=== PATIENT | female | born 1955 | race Caucasian/White ===

== ENCOUNTER 2017-11-10 14:25 | Emergency (ER) | payer BC ==
[2017-11-10 14:35] VITALS: BP 151/65
--- NOTE | 2017-11-10 14:57 | EDM.PDOC ---
ED HPI GENERAL MEDICAL PROBLEM - General Chief Complaint: Respiratory Problem Stated Complaint: COUGH Time Seen by Provider: 11/10/17 14:30 Source of Information: Reports: Patient History Limitations: Reports: No Limitations - History of Present Illness INITIAL COMMENTS - FREE TEXT/NARRATIVE: 62-year-old female presents for evaluation and treatment of cough. Patient reports that her symptoms started about . Reports her symptoms started with a headache. She reports current symptoms of headaches, fatigue, dyspnea on exertion, productive cough, nausea, diarrhea and vomiting. Per she's had 2 episodes of diarrhea and 2 episodes of vomiting today. She does have a past medical history of asthma and is on Spiriva and Brio. She also has an albuterol rescue inhaler and has been using this. Patient did get an influenza vaccine this season. 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 Duration: Day(s): (2) Headache Pain Score (Numeric/FACES): 5 - Related Data Allergies Allergy/AdvReac Type Severity Reaction Status Date / Time animal dander Allergy Cannot Verified 10/19/16 15:09 Remember codeine Allergy Cannot Verified 10/19/16 15:09 Remember Penicillins Allergy Airway Verified 10/19/16 15:09 Tightness Sulfa (Sulfonamide Allergy Cannot Verified 10/19/16 15:09 Antibiotics) Remember Home Meds: Home Meds Albuterol [Proair HFA] 2 puff INH Q4HR PRN 05/30/15 [History] Citalopram [Celexa] 40 mg PO DAILY 05/30/15 [History] Potassium Chloride [Klor-Con 8] 8 meq PO DAILY 05/30/15 [History] Acetaminophen [Tylenol Extra Strength] 1 - 2 tab PO Q6HR PRN 10/19/16 [History] Albuterol/Ipratropium [DuoNeb 3.0-0.5 MG/3 ML] 1 dose NEB Q6HR PRN 10/19/16 [ History] Budesonide/Formoterol [Symbicort 160-4.5 MCG] 2 puff INH BID PRN 10/19/16 [ History] Cetirizine HCl [Zyrtec] 1 tab PO DAILY 10/19/16 [History] Furosemide 1 tab PO DAILY 10/19/16 [History] Ibuprofen [Advil] 2 - 3 tab PO BID 10/19/16 [History] Levothyroxine Sodium 1 tab PO DAILY 10/19/16 [History] Pantoprazole Sodium 40 mg PO DAILY 10/19/16 [History] Levofloxacin [Levaquin] 750 mg PO DAILY #7 tab 11/10/17 [Rx] Ondansetron [Zofran ODT] 4 mg PO Q6H PRN #15 tab.dis 11/10/17 [Rx] Past Medical History HEENT History: Reports: Impaired Vision Other HEENT History: has upper denture, wears glasses Cardiovascular History: Reports: Heart Murmur Other Cardiovascular History: palpitations, elevated BNP, peripheral edema Respiratory History: Reports: Sleep Apnea Other Respiratory History: seasonal allergies, wears CPAP Gastrointestinal History: Reports: Hemorrhoids SURGICAL PROCESSOR History: Reports: , Other (See Below) Other OB/BYN History: exploratory laparotomy Musculoskeletal History: Psychiatric History: Reports: Anxiety, Other (See Below) Other Psychiatric History: fatigue Endocrine/Metabolic History: Reports: Hypothyroidism Hematologic History: Reports: Other (See Below) Other Hematologic History: vitamin d defiency - Past Surgical History HEENT Surgical History: Reports: None GI Surgical History: Reports: Cholecystectomy Female Surgical History: Reports: Breast Biopsy, Section, D&C, Hysterectomy Social & Family History - Tobacco Use Smoking Status *Q: Current Every Day Smoker Years of Tobacco use: 40 Packs/Tins Daily: 1 Used Tobacco, but Quit: No Second Hand Smoke Exposure: No - Caffeine Use Caffeine Use: Reports: Coffee - Recreational Drug Use Recreational Drug Use: No ED ROS GENERAL - Review of Systems Review Of Systems: See Below Constitutional: Reports: Chills, Fatigue. Denies: Fever HEENT: Reports: Throat Pain. Denies: Ear Pain Respiratory: Reports: Shortness of Breath, Cough GI/Abdominal: Reports: Diarrhea, Nausea, Vomiting Neurological: Reports: Headache ED EXAM, GENERAL - Physical Exam Exam: See Below Exam Limited By: No Limitations General Appearance: Alert, WD/WN, Mild Distress, Obese Eye Exam: Bilateral Eye: Normal Inspection Ears: Normal External Exam, Normal Canal, Hearing Grossly Normal, Normal TMs Nose: Normal Inspection Throat/Mouth: Normal Inspection, Normal Lips, Normal Oropharynx, Normal Voice, No Airway Compromise Neck: Normal Inspection. No: Lymphadenopathy (L), Lymphadenopathy (R) Respiratory/Chest: No Respiratory Distress, Lungs Clear, Normal Breath Sounds Cardiovascular: Normal Peripheral Pulses, Regular Rate, Rhythm, No Murmur Neurological: Alert, Oriented, Normal Cognition Psychiatric: Normal Affect, Normal Mood Skin Exam: Warm, Dry, Normal Color Course - Vital Signs Last Recorded V/S: Last Vital Signs Temp 36.5 C 11/10/17 14:31 Pulse 80 11/10/17 14:31 Resp 21 H 11/10/17 14:31 BP 151/65 H 11/10/17 14:31 Pulse Ox 99 11/10/17 14:31 - Orders/Labs/Meds Orders: Active Orders 24 hr Category Date Time Status Chest 2V [CR] Stat Exams 11/10/17 14:46 Taken - Radiology Interpretation Free Text/Narrative:: chest xray reviewed by myself and Dr. Cabrera. No acute infiltrate. Suspicious for bronchitis. - Re-Assessments/Exams Free Text/Narrative Re-Assessment/Exam: 11/10/17 15:51 Influenza returned negative. Discussed the chest x-ray and influenza results with the patient. I will treat her for bronchitis. She states that azithromycin has not worked for her. We'll treat her with Levaquin. She has allergies to codeine. She declined Tessalon Perles. She declined tussenx cough syrup. She has albuterol at home. Will give her some Zofran for nausea. Close follow-up with primary care provider. Discharge instructions as documented. Departure - Departure Time of Disposition: 15:52 Disposition: Home, Self-Care 01 Condition: Fair Clinical Impression: Bronchitis - Discharge Information Prescriptions: Levofloxacin [Levaquin] 750 mg PO DAILY #7 tab Ondansetron [Zofran ODT] 4 mg PO Q6H PRN #15 tab.dis PRN Reason: Nausea Instructions: Acute Bronchitis, [id number] Referrals: Gia Chand NP [Primary Care Provider] - Forms: ED Department Discharge, ED Return to Work/School Form Additional Instructions: take the levaquin as prescribed 1 tab PO daily x 7 days. note given for work. rest. make sure you are drinking plenty of fluids. used to albuterol inhaler as needed for shortness of breath. zofran 1 tablet sublingual every 6 hours as needed for nausea. follow up with your primary care provider within 2 weeks for recheck of your symptoms. please return to the er if your symptoms change or worsen. - My Orders Last 24 Hours: My Active Orders 11/10/17 14:46 Chest 2V [CR] Stat - Assessment/Plan Last 24 Hours: My Active Orders 11/10/17 14:46 Chest 2V [CR] Stat
--- NOTE | 2017-11-11 16:55 | CR ---
Chest: Two views of the chest were obtained. Comparison: Prior chest x-ray of 05/30/15. Heart size and mediastinum are normal. Lungs are clear. Bony structures show slight degenerative change within the mid and lower thoracic spine. Impression: 1. Incidental findings. Nothing acute is appreciated on two-view chest x-ray. Diagnostic code #2
== END 2017-11-10 16:05 | disposition home or self-care (01) ==
LOC: JD.ED 14:25
DX: J40 Bronchitis, not specified as acute or chronic (principal); E03.9 Hypothyroidism, unspecified; F17.210 Nicotine dependence, cigarettes, uncomplicated; Z88.5 Allergy status to narcotic agent; Z88.0 Allergy status to penicillin; Z88.2 Allergy status to sulfonamides; Z91.09 Other allergy status, other than to drugs and biological substances; Z79.899 Other long term (current) drug therapy
CPT/HCPCS: 71046; 71046-26; 87804; 99283; 99284